=== PATIENT | female | born 1965 ===

== ENCOUNTER 2018-12-03 13:08 | Outpatient (CLI) | payer OTHER | END 2018-12-03 13:09 | disposition home or self-care (01) | LOC: C.MAMMO 13:08 ==

== ENCOUNTER 2019-01-26 21:43 | Emergency (ER) | payer OTHER ==
[2019-01-26 21:54] VITALS: PULSE 89; RESP 16
[2019-01-26] MEDS ORDERED: Tdap Vaccine 0.5 ml Vial (10-64 yrs) IM ONE ×2 (22:07→22:13)
[2019-01-26] MEDS ORDERED: Bacitracin 500 Units/gm Oint Foilpak UD ONE (22:25)
--- NOTE | 2019-01-27 00:02 | C.PDOC ---
History Of Present Illness Patient presents c/o multiple abrasions and pain to her left hand, left knee and left thigh, and left cheek s/p trip and fall just prior to arrival. she states she tripped due to uneven sidewalk falling onto her left side. she denies LOC, vomiting, abdominal pain, chest pain or sob. - HPI Time Seen by Provider: 01/26/19 21:47 Chief Complaint (Nursing): Trauma History/Exam Limitations: no limitations Injury Occurred (Timing): Just Before Arrival Location Of Injury: Left: Hand, Knee, Thigh Severity: Moderate - Fall Fall:Prior To Injury: Tripped Past Medical History Vital Signs: Last Vital Signs Temp 98 F 01/26/19 21:51 Pulse 89 01/26/19 21:51 Resp 16 01/26/19 21:51 BP 152/85 H 01/26/19 21:51 Pulse Ox 98 01/26/19 21:51 - Medical History PMH: No Chronic Diseases - [facility] OTHER SKIN & SUBQ I D (03/22/15) Family History: States: Unknown Family Hx - Social History Hx Tobacco Use: No Hx Alcohol Use: No Hx Substance Use: No - Immunization History Hx Tetanus Toxoid Vaccination: No Hx Influenza Vaccination: No Hx Pneumococcal Vaccination: No Review Of Systems Constitutional: Negative for: Fever, Sweats, Weakness Eyes: Negative for: Vision Change ENT: Negative for: Ear Pain Cardiovascular: Negative for: Chest Pain Respiratory: Negative for: Shortness of Breath Gastrointestinal: Negative for: Nausea, Vomiting, Abdominal Pain Musculoskeletal: Positive for: Hand Pain, Leg Pain. Negative for: Neck Pain Neurological: Negative for: Weakness Physical Exam - Physical Exam Appears: Well, Non-toxic, No Acute Distress Skin: Normal Color, Warm Head: Abrasion (to left cheek and left side of chin) Eye(s): bilateral: Normal Inspection Ear(s): Bilateral: Normal Nose: No Epistaxis, No Tenderness Oral Mucosa: Moist Tongue: No Laceration Lips: No Abrasion, No Laceration Teeth: Normal Dentition Neck: Normal, No Midline Cervical Tenderness, No Paracervical Tenderness Chest: No Deformity, No Tenderness Gastrointestinal/Abdominal: No Tenderness Back: No CVA Tenderness, No Vertebral Tenderness Extremity: Tenderness (left thigh, no ecchymosis, able to bear weight, no effusion to left knee joint, full rom but has pain to extremity) Extremity: Left: Bony Point Tenderness, Hips Non-Tender Pulses: Left Radial: Normal, Right Radial: Normal Neurological/Psych: Oriented x3, Normal Speech, Normal Cognition, Normal Cranial Nerves, Normal Motor, Normal Sensation ED Course And Treatment O2 Sat by Pulse Oximetry: 98 Medical Decision Making Medical Decision Making: this patient was given pain medication and has remained comfortable throughout her visit. she is ambulatory with steady gait migdalia time of discharge. ryder wrap applied to left knee Disposition - Disposition Disposition: HOME/ ROUTINE Disposition Time: 01:19 Condition: IMPROVED Prescriptions: Cyclobenzaprine [Flexeril] 10 mg PO BID #10 tab Ibuprofen [Motrin Tab] 600 mg PO TID #21 tab Instructions: Contusion (DC), Preventing Falls, Minor Head Injury (DC), Skin Abrasions (DC) Forms: [facility] (Khmer), General Discharge Instructions - Clinical Impression Clinical Impression: Multiple abrasions, Accidental fall
[2019-01-27 01:35] VITALS: BP 108/69; TEMP 98.4
[2019-01-27 06:00] VITALS: O2SAT 98
--- NOTE | 2019-01-27 07:03 | RAD ---
Left wrist three views History: Injury. Comparison: None available. Findings: Mild narrowing of the radiocarpal joint space. No evidence of acute displaced fracture or dislocation. Minimal negative ulnar variance. Scapholunate interval measures up to 2 millimeters, upper limits of normal. Impression: Negative acute. If pain persists, consider MRI.
--- NOTE | 2019-01-27 12:55 | RAD ---
Left femur four views HISTORY: Injury. Comparison: None available. Findings: No evidence of acute displaced fracture or dislocation. Impression: Negative acute. If pain persists, consider MRI.
--- NOTE | 2019-01-27 12:57 | RAD ---
Left knee three views History: Injury. Comparison: None. Findings: Moderate medial and mild patellofemoral compartment joint space narrowing with subchondral sclerosis and osteophytosis. Small suprapatellar joint effusion. Mild productive change at the anterior tibial tubercle. Impression: Moderate medial and mild patellofemoral compartment joint space narrowing with subchondral sclerosis and osteophytosis. Small suprapatellar joint effusion. Mild productive change at the anterior tibial tubercle. If pain persists, consider correlation with MRI.
== END 2019-01-27 01:41 | disposition home or self-care (01) ==
LOC: C.ER 21:43
DX: S00.81XA Abrasion of other part of head, initial encounter (principal); S60.512A Abrasion of left hand, initial encounter; S80.212A Abrasion, left knee, initial encounter; S70.312A Abrasion, left thigh, initial encounter; W01.0XXA Fall on same level from slipping, tripping and stumbling without subsequent striking against object, initial encounter; Y92.480 Sidewalk as the place of occurrence of the external cause; Z23 Encounter for immunization